=== PATIENT | male | born 1945 | race Caucasian/White ===

== ENCOUNTER → 2019-04-27 | Outpatient (CLI) | payer OTHER | END | disposition home or self-care (01) | LOC: RAH 13:09 | PROVIDERS: ATTEND Internal Medicine Cardiovascular Disease | DX: Z13.6 Encounter for screening for cardiovascular disorders (principal) | CPT/HCPCS: 75571 ==

== ENCOUNTER 2021-06-16 06:25 | Day surgery (SDC) | payer OTHER ==
[2021-06-12 14:03] LABS: BASOPHILS % (AUTO) 0.5 % (0.0-5.0); EOSINOPHILS % (AUTO) 1.3 % (0.0-8.0); HEMATOCRIT 48.5 % (42-54); LYMPHOCYTES % (AUTO) 54.1 % (21.0-51.0); MEAN CORPUSCULAR HEMOGLOBIN 27.9 pg (27.0-33.0); MEAN CORPUSCULAR HGB CONC 32.4 g/dL (32.0-36.0); MEAN CORPUSCULAR VOLUME 86.1 fL (79-99); MONOCYTES % (AUTO) 6.3 % (3.0-13.0); NEUTROPHILS % (AUTO) 37.3 % (40.0-77.0); PLATELET COUNT (AUTO) 150 K/uL (130-400); RED BLOOD CELL COUNT(AUTO) 5.63 MIL/uL (4.50-6.20); RED CELL DISTRIBUTION WIDTH 15.1 % (11.0-15.5); WHITE BLOOD COUNT (AUTO) 14.2 K/uL (4.8-10.8)
[2021-06-12 14:20] LABS: INR 1.05 (0.85-1.15); PROTHROMBIN TIME 11.4 SEC (9.6-11.6)
[2021-06-12 14:21] LABS: PARTIAL THROMBOPLASTIN TIME 28.9 SEC (26.3-35.5)
[2021-06-12 14:54] LABS: CREATININE 1.2 mg/dL (0.5-1.5); POTASSIUM 4.5 mmol/L (3.5-5.1)
[2021-06-15 11:06] VITALS: BP 190/89
[2021-06-16] VITALS (16 sets, daily range): BP systolic 112–170; BP diastolic 54–101
[~2021-06-16] VITALS: Ht 177.8 cm; Wt 125.1 kg
[2021-06-16] MEDS: CEFAZOLIN SODIUM 1 GM VIAL IVP SCH ×2 (05:00→08:20)
[~2021-06-16 06:25] MED LIST: ATENOLOL PO; CLOP75TA32 PO; GABA600T10 PO; METF-444 PO; PRAV20TA4 PO; [UNRECOGNIZED DRUG - OTHER] PO
[2021-06-16] MEDS ORDERED: 0.9%NACL 1000ML 1,000 ML IV ONE (06:44)
[2021-06-16] MEDS ORDERED: BACITRACIN 28.4 GM OINT TP ONE (06:55)
[2021-06-16] MEDS ORDERED: MINERAL OIL 30 ML UDCUP ONE (06:55)
[2021-06-16] MEDS ORDERED: LIDOCAINE 1%-EPI 1:100,000 20 ML VIAL IJ SCH (07:00)
[2021-06-16] MEDS ORDERED: LIDOCAINE PF 100MG/5ML (2%) SYRINGE 5ML ONE (07:28)
[2021-06-16] MEDS ORDERED: PHENYLEPHRINE HCL 10 MG/ML 1ML VIAL IV ONE (07:28)
[2021-06-16] MEDS ORDERED: SUCCINYLCHOLINE CHLORIDE 20 MG/ML 10 ML VIAL ONE (07:28)
[2021-06-16] MEDS ORDERED: FENTANYL CITRATE PF 50 MCG/1 ML 2ML VIAL ONE (07:29)
[2021-06-16] MEDS ORDERED: PROPOFOL 10 MG/ML 20ML VIAL IV ONE (07:29)
[2021-06-16] MEDS ORDERED: MIDAZOLAM HCL 1 MG/ML 2ML VIAL ONE (07:57)
[2021-06-16] MEDS ORDERED: GLYCOPYRROLATE 1 MG/5 ML SYRINGE ONE (08:35)
[2021-06-16] MEDS ORDERED: ONDANSETRON 4MG INJ ONE (11:33)
[2021-06-16] MEDS ORDERED: MEPERIDINE-PF 25 MG/ML SYG ONE (11:34)
== END 2021-06-16 13:10 | disposition home or self-care (01) ==
LOC: DAH 06:25
PROVIDERS: ATTEND Otolaryngology Plastic Surgery within the Head & Neck
DX: C44.42 Squamous cell carcinoma of skin of scalp and neck (principal); Z20.822 Contact with and (suspected) exposure to COVID-19; L72.12 Trichodermal cyst; I10 Essential (primary) hypertension; E11.9 Type 2 diabetes mellitus without complications; M19.90 Unspecified osteoarthritis, unspecified site; E78.5 Hyperlipidemia, unspecified; Z98.890 Other specified postprocedural states; Z90.49 Acquired absence of other specified parts of digestive tract; Z87.891 Personal history of nicotine dependence; Z86.73 Personal history of transient ischemic attack (TIA), and cerebral infarction without residual deficits; Z98.41 Cataract extraction status, right eye; Z79.84 Long term (current) use of oral hypoglycemic drugs; Z79.899 Other long term (current) drug therapy; Z79.01 Long term (current) use of anticoagulants; Z98.49 Cataract extraction status, unspecified eye; Z79.82 Long term (current) use of aspirin
CPT/HCPCS: 11442; 11623; 15120; 15121; 36415; 80048; 82948 ×2; 85025; 85610; 85730; 87635; 88305; 88331; 93005; A4215; A4221; A4222; A4223; A4606; A4649; A4663; A4930; A6204; A6223; A6260; C9803; J0330; J0690 ×2; J2001; J2175; J2250; J2370; J2405; J2704; J3010; J3490 ×2; J7030 ×2

== ENCOUNTER 2022-08-18 07:55 | Day surgery (SDC) | payer OTHER ==
[2022-08-17 14:19] LABS: BASOPHILS % (AUTO) 0.4 % (0.0-5.0); EOSINOPHILS % (AUTO) 1.2 % (0.0-8.0); HEMATOCRIT 36.5 % (42-54); LYMPHOCYTES % (AUTO) 74.1 % (21.0-51.0); MEAN CORPUSCULAR HEMOGLOBIN 22.6 pg (27.0-33.0); MEAN CORPUSCULAR HGB CONC 29.9 g/dL (32.0-36.0); MEAN CORPUSCULAR VOLUME 75.7 fL (79-99); MONOCYTES % (AUTO) 4.6 % (3.0-13.0); NEUTROPHILS % (AUTO) 19.4 % (40.0-77.0); PLATELET COUNT (AUTO) 231 K/uL (130-400); RED BLOOD CELL COUNT(AUTO) 4.82 MIL/uL (4.50-6.20); WHITE BLOOD COUNT (AUTO) 18.9 K/uL (4.8-10.8)
[2022-08-17 14:31] LABS: ALBUMIN 3.3 g/dL (3.5-5.0); CREATININE 1.3 mg/dL (0.5-1.5); POTASSIUM 4.2 mmol/L (3.5-5.1); TOTAL PROTEIN, SERUM 6.8 g/dL (6.0-8.3)
[2022-08-17 14:35] LABS: INR 1.02 (0.85-1.15); PROTHROMBIN TIME 11.1 SEC (9.6-11.6)
[2022-08-17 14:36] LABS: PARTIAL THROMBOPLASTIN TIME 30.7 SEC (26.3-35.5)
[2022-08-17 15:26] VITALS: BP 147/59
[~2022-08-18] VITALS: Ht 177.8 cm; Wt 108.0 kg
[2022-08-18] VITALS (18 sets, daily range): BP systolic 115–149; BP diastolic 51–70
[~2022-08-18 07:55] MED LIST changes: +AMLO-257 PO; -ATENOLOL PO; +BUPIVACAINE/EPI/PF 0.25% 10ML VIAL IJ ONE; +CHOL400C9 PO; +GENTAMICIN SULFATE 80 MG/2 ML VIAL ONE; +LACTATED RINGERS 1000ML 0 ML IV ONE; +LISI20TA24 PO; +MEROPENEM IVCENT; -METF-444 PO; +METHYLENE BLUE 5 MG/ML AMP ONE; +MINERAL OIL 30 ML UDCUP ONE; +OMEP20CA12 PO; -PRAV20TA4 PO; +PRAV40TA3 PO; +THROMBIN-JMI 5000 UNIT/VIAL TP ONE; +VANC1IVPB IVCENT; +VITA1CAP85 PO; -[UNRECOGNIZED DRUG - OTHER] PO
[2022-08-18] MEDS ORDERED: CEFAZOLIN SODIUM 1 GM VIAL IVP ONE (08:00)
[2022-08-18] MEDS ORDERED: 0.9%NACL 1000ML 1,000 ML IV ONE (08:00)
[2022-08-18] MEDS ORDERED: BACITRACIN 28.4 GM OINT TP ONE (08:19)
[2022-08-18] MEDS ORDERED: ONDANSETRON 4MG INJ ONE (08:23)
[2022-08-18] MEDS ORDERED: MIDAZOLAM HCL 1 MG/ML 2ML VIAL ONE (08:23)
[2022-08-18] MEDS ORDERED: PROPOFOL 10 MG/ML 20ML VIAL IV ONE (08:23)
[2022-08-18] MEDS ORDERED: ROCURONIUM 10MG/1ML SYR 10 MG/ML ML ONE ×2 (08:23→08:50)
[2022-08-18] MEDS ORDERED: FENTANYL CITRATE PF 50 MCG/1 ML 5ML AMP IV ONE (08:24)
[2022-08-18] MEDS ORDERED: CLINDAMYCIN 900MG/6ML INJ IJ ONE (08:35)
[2022-08-18] MEDS ORDERED: CLINDAMYCIN IVPB 900MG/50ML 50 ML IV ONE (08:45)
[2022-08-18] MEDS ORDERED: EPHEDRINE SULFATE 50 MG/ML AMPULE ONE (08:59)
[2022-08-18] MEDS ORDERED: BUPIVACAINE/EPI/PF 0.25% 10ML VIAL IJ ONE (09:13)
[2022-08-18] MEDS ORDERED: CLINDAMYCIN IVPB 600MG/50ML 0 ML IV ONE (09:16)
[2022-08-18] MEDS ORDERED: PHENYLEPHRINE HCL 10 MG/ML 1ML VIAL IV ONE (09:26)
[2022-08-18] MEDS ORDERED: NEOSTIGMINE 5MG/5ML SYR IV ONE (10:17)
[2022-08-18] MEDS ORDERED: GLYCOPYRROLATE 1 MG/5 ML SYRINGE ONE (10:17)
[2022-08-18] MEDS ORDERED: FENTANYL CITRATE PF 50 MCG/1 ML 2ML VIAL ONE (11:00)
== END 2022-08-18 12:35 | disposition home or self-care (01) ==
LOC: DAH 07:55
PROVIDERS: ATTEND Plastic Surgery
DX: C44.42 Squamous cell carcinoma of skin of scalp and neck (principal); Z20.822 Contact with and (suspected) exposure to COVID-19; L57.9 Skin changes due to chronic exposure to nonionizing radiation, unspecified; S01.00XA Unspecified open wound of scalp, initial encounter; I10 Essential (primary) hypertension; K21.9 Gastro-esophageal reflux disease without esophagitis; J45.909 Unspecified asthma, uncomplicated; E66.9 Obesity, unspecified; E78.00 Pure hypercholesterolemia, unspecified; M19.90 Unspecified osteoarthritis, unspecified site; E11.9 Type 2 diabetes mellitus without complications; E78.5 Hyperlipidemia, unspecified; Z80.0 Family history of malignant neoplasm of digestive organs; Z79.01 Long term (current) use of anticoagulants; Z79.899 Other long term (current) drug therapy; Z86.73 Personal history of transient ischemic attack (TIA), and cerebral infarction without residual deficits; Z79.84 Long term (current) use of oral hypoglycemic drugs; Z98.890 Other specified postprocedural states; Z90.49 Acquired absence of other specified parts of digestive tract; X58.XXXA Exposure to other specified factors, initial encounter; Z68.36 Body mass index [BMI] 36.0-36.9, adult
CPT/HCPCS: 87426; 93005; 80053; 85025; 85610; 85730; 36415; 15120; 15004; 15121; 15005; 82948; 88305; Q9968; A4663; A4606; J3010 ×2; J3490 ×6; J2710; J7030; J1580; J2250; J2704; J2405; J2370; A6223; A4649; A4215; A4223; A4222; A4221; A4600; J0690; J7120